=== PATIENT | male | born 1985 | race Caucasian/White ===

== ENCOUNTER 2018-02-03 23:18 | Emergency (ER) | payer OTHER, SELFPAY ==
[2018-02-03 23:19] VITALS: BP 145/89; PULSE 89; RESP 16; TEMP 36.6; O2SAT 98; BMI 31.9
--- NOTE | 2018-02-04 00:01 | RAD_ITS ---
STUDY: X-RAY - RIGHT SHOULDER REASON FOR EXAM: Male, 32 years old. Trauma right shoulder pain TECHNIQUE: 4 view(s) of the shoulder. COMPARISON: None. FINDINGS: No acute fracture or dislocation. No radiopaque foreign body. Normal visualized pulmonary apex. RAD/Shoulder min 2 Views IMPRESSION: No acute fracture or dislocation. Electronically Signed: Otto Garcia, at 0:34 EST Tel , Service support ,
--- NOTE | 2018-02-04 01:24 | ED.VISSUMM ---
- ER Visit Summary Date of Service: 02/04/18 Chief Complaint: Fall History of Present Illness: The patient is a 32 M who presents after a fall that occurred tonight at work. Patient states he fell approximately 4 feet. Patient states he landed on his right shoulder and hit the right side of his head. Patient denies any loss of consciousness. Patient describes the pain as tightness and aching. Patient states the pain is worse with movement. Patient denies any paresthesias or weakness. Patient denies any difficulty ambulating. Patient states his last tetanus was within the last 5 years. Patient does admit to some nausea but denies any vomiting. Patient denies any visual changes. Patient denies any hearing changes. Physical Examination: Vital signs are stable. Patient is afebrile. Patient is in no acute distress. Oral mucosa is pink and moist. Neck is supple. Trachea is midline. There is no JVD noted. Heart was regular rate and rhythm. Lungs are clear and equal bilateral. There is good respiratory effort noted. Musculoskeletal exam reveals tenderness over the right shoulder, worse over the posterior aspect of the shoulder. There is no bony crepitance or step-off. There is no edema or ecchymosis. There is no deformity noted. Range of motion was slightly limited in abduction, flexion, and extension secondary to pain. Sensation was intact to light touch in the radial, median, ulnar, and axillary areas. Strength is 5/5 bilaterally. Cranial nerves II through XII are intact. There are no focal motor or sensory deficits noted. There is some mild tenderness over the cervical spine and right cervical paraspinal muscles. There is no ecchymosis. Range of motion was limited in all motions of the cervical spine secondary to pain. There is also mild tenderness over the right occipital area of the scalp. There is no bony crepitance or step-off. Test Results: CT scan of the brain and cervical spine were obtained. There is no acute intracranial abnormality. There is no cervical spine fracture. X-rays of the right shoulder were obtained. There is no acute fracture or dislocation. Emergency Department Course and Treatment: Patient was instructed to ice and elevate the right shoulder. Patient was instructed to take [id number] ibuprofen or Tylenol as needed for pain. Patient was instructed to follow-up with his primary care physician or [facility] in 5-7 days. Patient understood and was agreeable with the plan. All questions were answered. Disposition: Discharged home Impression: 1. Right shoulder contusion 2. Acute cervical strain 3. Head contusion This note was generated with [employer] dictation software. It may contain incorrect words, spelling, and punctuation that were not noted in review of the chart prior to signing ED Disposition - Plan for ED Patient: Chief Complaint: Fall Diagnosis: Head contusion, Contusion of right shoulder, initial encounter, Acute cervical myofascial strain Instructions: ED Mechanical Fall, ED Contusion Upper Ext, ED Head Injury Closed Referrals: Care Physician,No Primary [Primary Care Provider] -
--- NOTE | 2018-02-04 01:28 | ED.DCSUM_ITS ---
- ER Visit Summary Date of Service: 02/04/18 Chief Complaint: Fall History of Present Illness: The patient is a 32 M who presents after a fall that occurred tonight at work. Patient states he fell approximately 4 feet. Patient states he landed on his right shoulder and hit the right side of his head. Pat ient denies any loss of consciousness. Patient describes the pain as tightness and aching. Patient states the pain is worse with movement. Patient denies any paresthesias or weakness. Patient denies any difficulty ambulating. Patient states his last tetanus was within the last 5 years. Patient does admit to some nausea but denies any vomiting. Patient denies any visual changes. Patient den ies any hearing changes. Physical Examination: Vital signs are stable. Patient is afebrile. Patient is in no acute distress. Oral mucosa is pink and moist. Neck is supple. Trachea is midline. There is no JVD noted. Heart was regular rate and rhythm. Lungs are clear and equal bilateral. There is good respiratory effort noted. Musculoskeletal exam reveals tenderness over the right shoulder, worse over the posterior aspect of the shoulder. There is no bony crepitance or step-off. There is no edema or ecchymosis. There is no deformity noted. Range of motion was slightly limited in abduction, flexion, and extension secondary to pain. Sensation was intact to light touch in the radial, median, ulnar, and axillary areas. Strength is 5/5 bilaterally. Cranial nerves II through XII are intact. There are no focal motor or sensory deficits noted. There is some mild tenderness over the cervical spine and right cervical paraspinal muscles. There is no ecchymosis. Range of motion was limited in all motions of the cervical spine secondary to pain. There is also mild tenderness over the right occipital area of the scalp. There is no bony crepitance or step-off. Test Results: CT scan of the brain and cervical spine were obtained. There is no acute intracranial abnormality. There is no cervical spine fracture. X-rays of the right shoulder were obtained. There is no acute fracture or dislocation. Emergency Department Course and Treatment: Patient was instructed to ice and elevate the right shoulder. Patient was instructed to take [id number] ibuprofen or Tylenol as needed for pain. Patient was instructed to follow-up with his primary care physician or [facility] in 5-7 days. Patient understood and was agreeable with the plan. All questions were answered. Disposition: Discharged home Impression: 1. Right shoulder contusion 2. Acute cervical strain 3. Head contusion This note was generated with [employer] dictation software. It may contain incorrect words, spelling, and punctuation that were not noted in review of the chart prior to signing ED Disposition - Plan for ED Patient: Chief Complaint: Fall Diagnosis: Head contusion, Contusion of right shoulder, initial encounter, Acute cervical myofascial strain Instructions: ED Mechanical Fall, ED Contusion Upper Ext, ED Head Injury Closed Referrals: Care Physician,No Primary [Primary Care Provider] -
[2018-02-04 01:41] VITALS: RESP 15
--- NOTE | 2018-02-04 23:42 | CT_ITS ---
STUDY: CT BRAIN WITHOUT CONTRAST REASON FOR EXAM: Male, 32 years old. Trauma RADIATION DOSAGE (If Supplied By Facility): CTDIvol = ( 44.99 ) mGy, DLP = ( 796.11 ) mGycm TECHNIQUE: Transaxial CT imaging of the brain was performed without administration of intravenous contrast material. Individualized dose optimization techniques were used for this CT. COMPARISON: None. FINDINGS: Normal soft tissue structures. Normal calvarium. Normal size ventricles and extra-axial spaces for the patient's age. Normal white matter tracts of the cerebral hemispheres. Normal basal ganglia and thalami. Normal brainstem. Normal cerebellum. There is no intracranial hemorrhage. There are no findings of an acute ischemic infarction. Normal visualized paranasal sinuses. CT/Brain/Head without Contrast IMPRESSION: Normal unenhanced CT scan of the brain. Electronically Signed: Otto Garcia, at 1:14 EST Tel , Service support ,
--- NOTE | 2018-02-04 23:43 | CT_ITS ---
STUDY: CT CERVICAL SPINE WITHOUT CONTRAST REASON FOR EXAM: Male, 32 years old. Trauma RADIATION DOSAGE (If Supplied By Facility): CTDIvol = ( 21.73 ) mGy, DLP = ( 497.84 ) mGycm TECHNIQUE: High resolution transaxial imaging was performed without contrast material. Sagittal and coronal images were reconstructed. Individualized dose optimization techniques were used for this CT. COMPARISON: None FINDINGS: Normal craniovertebral junction. Normal anterior atlantoaxial articulation. Normal odontoid process. Normal cervical lordosis. Mild degenerative changes. No acute fracture or subluxation. The small amount of gas adjacent to the posterior right aspect of the upper thoracic trachea. No significant prevertebral soft tissue swelling. CT/Spine Cervical without Contras IMPRESSION: Mild degenerative changes. No acute fracture or subluxation. There is a small amount of gas seen to the posterior right aspect of the upper thoracic trachea. This could represent a tracheal diverticulum. A definitive connection to the trachea is not clearly identified on these images. Small amount of gas within the soft tissues is thought less likely given the usual location of the tracheal diverticulum however cannot be excluded. If there is clinical concern a dedicated CT scan of the chest could be performed to further evaluate. Electronically Signed: Otto Garcia, at 1:19 EST Tel , Service support ,
== END 2018-02-04 01:46 | disposition home or self-care (01) ==
PROVIDERS: Emergency Provider Emergency Medicine
DX: S00.93XA Contusion of unspecified part of head, initial encounter (principal); S40.011A Contusion of right shoulder, initial encounter; S16.1XXA Strain of muscle, fascia and tendon at neck level, initial encounter; Z72.0 Tobacco use; W17.89XA Other fall from one level to another, initial encounter; Y93.89 Activity, other specified; Y92.89 Other specified places as the place of occurrence of the external cause; Y99.0 Civilian activity done for income or pay
CPT/HCPCS: 70450; 72125; 73030; 99282

== ENCOUNTER 2018-10-03 08:59 | Emergency (ER) | payer OTHER, SELFPAY ==
[2018-10-03 09:00] VITALS: BP 180/104; PULSE 94; RESP 16; TEMP 37.2; O2SAT 97; BMI 31.9
--- NOTE | 2018-10-03 09:07 | ED.VIS.GEN ---
History of Present Illness Chief Complaint: Allergic Reaction Informant: Patient Onset: Today - 819 Context: Sudden Onset Timing: Continuous Quality: Stung left upper eyelid Location: Left upper eyelid Current Severity: Mild Maximum Severity: Mild Worsened by: Hymenoptera envenomation Relieved by: Nothing Associated Symptoms: Nothing Narrative: Patient is a healthy 33 male who presents because of swelling left upper eyelid. This occurred after hymenoptera envenomation. This occurred at 0820. He has no systemic symptoms. He specifically denies swelling of his lips, tongue or throat. There is no change in voice. No difficulty swallowing or drooling. He denies wheezing or shortness of breath. Denies dyspnea on exertion. He denies nausea or vomiting presently. He states when this first occurred he felt nauseous. He has not noted a rash. He states he is tired because he works third shift. Prior similar symptoms: No Recent Illness/Hospitalization: No - Past Medical History (1) No significant past medical history Status: Acute Past Medical History - Allergies and Home Meds Allergies/Adverse Reactions: Allergies No Known Allergies Allergy (Verified 02/03/18 23:22) Primary Care Physician: Care Physician,No Primary [Primary Care Provider] - Prior records reviewed: No Past Medical History: None Surgical History: no surgical history Lives: Spouse/ Significant Other Smoking Status: Current every day smoker Alcohol: Rare Drugs: None Review of Systems General: Denies: Chills, Fever, Sweats Eyes: Reports: - - Swelling left upper eyelid. Denies: Visual changes - bilaterally, Blurred Vision - bilaterally, Diplopia ENT: Denies: Bilateral ear pain, Rhinorrhea, Sore throat Cardiovascular: Denies: Chest pain, Palpitations Respiratory: Denies: Dyspnea, Cough, Dyspnea on exertion Gastrointestinal: Reports: Nausea. Denies: Abdominal pain, Vomiting, Diarrhea Genitourinary: Denies: Dysuria, Hematuria, Frequency Musculoskeletal: Denies: Myalgias, Arthralgias, Neck pain, Back pain, Swelling, Extremity Pain Skin: Denies: Rash, Abrasions, Wounds Neurological: Denies: Headache, Weakness, Parasthesia, Numbness Allergy: Denies: Uticaria, Swelling of the mouth, Swelling of the tongue Physical Exam Vital Signs/Narrative: Vital Signs Temp Pulse Resp BP Pulse Ox 10/03/18 09:00 98.9 F 94 16 180/104 H 97 Inital Vital Signs reviewed: Yes - Pressure is elevated General: Well nourished, Well developed, No Acute Distress Head: Normocephalic, Atraumatic. Negative for: Trauma, Tenderness Eyes: Perrl, EOMI, - - Swelling of the left upper eyelid only. Negative for: Pale conjunctiva, Scleral icterus ENT: Moist mucous membranes, No rhinorrhea, TM's clear, - - There is no evidence of angioedema. Trachea is midline. There is no stridor. Neck: Supple, Nontender, No lymphadenopathy, No JVD Cardiovascular: Regular rate, Regular rhythm, No murmurs Respiratory: No distress, CTA bilaterally, Chest nontender Extremities: Nontender, No edema Skin: Normal color, No rash, No Trauma - There is a wound secondary to envenomation site. Negative for: Cyanosis, Diaphoresis, Jaundice Neurological: Alert, Oriented x3, Cranial nerves II-XII grossly intact, Normal Strength, Normal Sensation Psychological: Normal affect, Normal Mood Diagnostic/Tx/Re-eval - Medical Decision Making Sent with local allergic reaction to hymenoptera envenomation. Patient was instructed ice and Benadryl. The swelling may get worse over the next 24 to 48 hours. This is to be expected. ED Disposition - Plan for ED Patient: Disposition: Home or Assisted Living Diagnosis: Allergic reaction to bee sting, Elevated blood pressure reading Instructions: ALLERGIC REACTION, Insect (Local) Referrals: Care Physician,No Primary [Primary Care Provider] - Radha Dela Cruz DO [STAFF PHYSICIAN] - Additional Instructions: Since you do not have a primary care physician you were assigned to Dr. Radha Dela Cruz. Your blood pressure is elevated, 180/104. Your blood pressure should be reassessed in 1 to 2 weeks.
[2018-10-03 09:53] VITALS: BP 169/99; PULSE 89; RESP 16; O2SAT 99
== END 2018-10-03 09:54 | disposition home or self-care (01) ==
PROVIDERS: Emergency Provider Emergency Medicine; Family Provider Student in an Organized Health Care Education/Training Program; PCP Student in an Organized Health Care Education/Training Program
DX: T63.441A Toxic effect of venom of bees, accidental (unintentional), initial encounter (principal); R22.0 Localized swelling, mass and lump, head; R03.0 Elevated blood-pressure reading, without diagnosis of hypertension; F17.200 Nicotine dependence, unspecified, uncomplicated
CPT/HCPCS: 99282

== ENCOUNTER 2020-06-03 22:52 | Emergency (ER) | payer OTHER, SELFPAY ==
[2020-06-03 22:53] VITALS: BP 162/84; PULSE 95; RESP 18; TEMP 36.4; O2SAT 99; BMI 32.6
--- NOTE | 2020-06-03 23:02 | ED.VIS.GEN ---
History of Present Illness Chief Complaint: Bite Informant: Patient Onset: Yesterday Context: Gradual Onset Timing: Continuous Current Severity: Moderate Maximum Severity: Moderate Narrative: Patient is an otherwise healthy 34-year-old male who presents to the emergency department with itching and redness of his right arm. Patient states that over the weekend, he was helping a neighbor with a garden bed. He states that Wednesday morning, he noticed that there was some small welts on his right forearm. He states that they seem to have spread and he got more itchy. He states that 1 seem to rupture and there were some crusting around the edge. He denies fevers or chills. He denies any definitive trauma. He is otherwise been in his normal state of health. Prior similar symptoms: No Recent Illness/Hospitalization: No Past Medical History - Allergies and Home Meds Allergies/Adverse Reactions: Allergies No Known Allergies Allergy (Verified 06/03/20 22:55) Primary Care Physician: Isaias Villasenor DO [Primary Care Provider] - Prior records reviewed: Yes Past Medical History: None Surgical History: no surgical history Smoking Status: Current every day smoker Review of Systems General: Denies: Chills, Fever, Sweats Eyes: Denies: Visual changes - bilaterally, Diplopia ENT: Denies: Rhinorrhea, Sore throat Cardiovascular: Denies: Chest pain, Palpitations Respiratory: Denies: Dyspnea, Cough, Dyspnea on exertion Gastrointestinal: Denies: Abdominal pain, Nausea, Vomiting, Diarrhea, Melena, Hematochezia Genitourinary: Denies: Dysuria, Hematuria, Frequency Musculoskeletal: Denies: Back pain, Extremity Pain Skin: Denies: Rash, Wounds Neurological: Denies: Headache, Weakness, Numbness Physical Exam Vital Signs/Narrative: Vital Signs Temp Pulse Resp BP Pulse Ox 06/03/20 22:53 97.5 F L 95 18 162/84 H 99 Inital Vital Signs reviewed: Yes General: Well nourished, Well developed, No Acute Distress Head: Normocephalic, Atraumatic Eyes: Perrl, EOMI ENT: Moist mucous membranes, No rhinorrhea Neck: Supple, Nontender Cardiovascular: Regular rate, Regular rhythm, No murmurs Respiratory: No distress, CTA bilaterally, Chest nontender Abdomen: Soft, Nontender, Nondistended, Normal bowel sounds Back: Nontender, Normal Inspection Extremities: No edema, Tenderness - Patient has some scant linear eruption of urticaria with 2 small vesicles. It does seem to be consistent with allergic reaction contact dermatitis. There is no abscess. There is no streaking. Skin: Normal color Neurological: Alert, Oriented x3, Cranial nerves II-XII grossly intact, Normal Strength, Normal Sensation Psychological: Normal affect, Normal Mood Diagnostic/Tx/Re-eval - Medical Decision Making Clinically, I do feel this is most consistent with a contact dermatitis. The patient does have a 0.5 cm area of ulceration where he had the largest blister. The wound edges are mildly erythematous, but there is no significant cellulitis. I do feel the most prudent plan of care at this point will be to treat him with prednisone and oral antibiotics. I do not suspect a dangerous process. His compartments are soft. His pulses are normal. There is no overwhelming evidence of infection. I will have him reevaluated within 48 hours and is comfortable with this plan of care. Impression 1. Contact dermatitis ED Disposition - Plan for ED Patient: Instructions: ED Contact Dermatitis Prescriptions: Cephalexin [Keflex] 500 mg PO Q6 #40 capsule Prescription Printed Prednisone 10 mg PO UD #33 tablet Prescription Printed Referrals: Isaias Villasenor DO [Primary Care Provider] -
[2020-06-03] MEDS: Cephalexin 250 MG Capsule 500 MG PO (23:05)
[2020-06-03] MEDS: predniSONE 20 MG Tablet 60 MG PO (23:05)
== END 2020-06-03 23:27 | disposition home or self-care (01) ==
LOC: ED 23:20
PROVIDERS: Emergency Provider Emergency Medicine; PCP Student in an Organized Health Care Education/Training Program
DX: L25.9 Unspecified contact dermatitis, unspecified cause (principal); F17.200 Nicotine dependence, unspecified, uncomplicated
CPT/HCPCS: 99283

== ENCOUNTER 2021-03-21 22:17 | Emergency (ER) | payer OTHER, SELFPAY ==
[2021-03-21 22:18] VITALS: BP 161/84; PULSE 84; RESP 16; TEMP 35.7; O2SAT 99; BMI 33.4
[2021-03-21 23:12] LABS: Absolute Lymphocyte Count 4.52 X10^3/uL (0.83-4.51); Absolute Neutrophil Count 4.3 X10^3/uL (2.0-7.7); Basophil# 0.11 X10^3/uL; Basophil% 1.1 % (0-1); Eosinophil# 0.52 X10^3/uL; Eosinophils% 5.2 % (0-5); Hematocrit 40.7 % (40-54); Hemoglobin 14.5 g/dL (13.0-16.5); Lymphocyte # 4.52 X10^3/ul (0.83-4.51); Lymphocyte % 45.1 % (19-41); Mean Corp Hgb Conc 35.6 g/dL (32-36); Mean Corpuscular Hgb 31.4 pg (27.0-32.0); Mean Corpuscular Volume 88.1 fL (80-94); Mean Platelet Vol. 10.3 fl (6.2-12.0); Monocyte# 0.59 X10^3/uL; Monocyte% 5.9 % (0-10); NRBC Flagged by Analyzer 0 % (0-5); Neutrophil # 4.27 X10^3/uL (2.7-7.7); Neutrophil % 42.5 % (47-70); POSITIVE MORPHOLOGY YES; Platelet Count 225 K/mm3 (150-450); RBC Distribution Width CV 12.1 % (11.6-14.6); RBC Distribution Width SD 38.7 fl (35.1-43.9); Red Blood Count 4.62 M/mm3 (4.6-6.2)
--- NOTE | 2021-03-21 23:12 | EDS_ITS ---
HPI History of Present Illness Chief Complaint: Other, Pain/Inj Narrative Narrative: Patient is a 35-year-old male who presents to the ER with left-sided neck pain. 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 He denies any direct trauma or recent excessive activity and states he noticed some pain in the left side of his neck yesterday with no known injury. He states that the pain has worsened and also spread up into his face today. He denies any trouble breathing or swallowing any fevers or chills but with the worsening symptoms presents to the hospital for evaluation. PFSH PFSH Home Medications hydrocodone-acetaminophen 1 tab PO Q6H PRN 3 Days #12 tab 03/22/21 [Rx Last Taken Unknown] methocarbamol 1,000 mg PO 4X/DAY PRN PRN 7 Days #56 tab 03/22/21 [Rx Last Taken Unknown] [id number] 4 drp LEFT EAR 4X/DAY 7 Days #10 ml 03/22/21 [Rx Last Taken Unknown] Allergy/AdvReac Type Severity Reaction Status Date / Time No Known Allergies Allergy Verified 03/21/21 22:20 Social History Smoking Status: Current every day smoker tobacco type: cigarettes ROS ROS ED Constitutional Constitutional ED: Denies chills or fever(s) ENT ENT ED: Denies sore throat Cardiovascular Cardiovascular: Denies chest pain Respiratory/Chest Respiratory/Chest: Denies cough or dyspnea Gastrointestinal Gastrointestinal: Denies abdominal pain, diarrhea, nausea or vomiting Genitourinary Genitourinary ED: Denies dysuria Musculoskeletal Musculoskeletal: Reports neck pain; Denies myalgias Integumentary Denies Abrasions or rash Neurologic Neurologic: Denies headache(s) Hematologic/Lymphatic Hematologic/Lymphatic: Denies easy bleeding or easy bruising EXAM Physical Exam Const Vital Signs: 03/21/21 22:18 03/21/21 22:53 Temperature 96.2 F L Temperature Source Temporal Pulse Rate 84 Respiratory Rate 16 Respiratory Effort Normal Non-Labored Respiratory Pattern Normal Blood Pressure 161/84 H Blood Pressure Mean 109 Pulse Ox 99 Oxygen Delivery Method Room Air Positive well nourished and well developed General Appearance ED: well developed HEENT Reports moist mucous membranes HEENT Narrative: No tonsillar hypertrophy or edema no trismus or change in voice or difficulty with secretions no obvious abscess airway edema or compromise. Patient does have mild soft tissue swelling and erythema of the left ear canal compared to the right but there is no pain with external manipulation of the left ear and no mastoid pain bilaterally. Eyes PERRL and EOMs intact bilaterally Neck supple Neck Narrative: Patient has pain with palpation in the left mid anterior cervical lymph node chain in the neck without obvious lymphadenopathy or overlying soft tissue changes. No meningeal signs Resp normal respiratory effort and clear to auscultation bilaterally Cardio regular rate and regular rhythm GI normal to inspection, nondistended, normoactive bowel sounds, non-tender, non- distended and no masses Auscultation: normoactive bowel sounds Palpation: soft Extremity normal to inspection Neuro oriented x3 and CN's II-XII intact bilaterally Sensorium / Orientation: alert Motor Exam: strength 5/5 throughout Psych mental status grossly normal Skin no rashes or lesions noted MDM MDM MDM Narrative Medical decision making narrative: Patient presented to the ER complaining of pain in the left anterior cervical chain of his neck with no known injury. He did not have any obvious overlying soft tissue changes to suggest abscess or soft tissue infection. The posterior pharynx exam did not show any obvious abscess or signs of infection either. However with his pain coming on spontaneously I did elect to perform basic labs and a CT scan to rule this out. Labs revealed no clinically significant findings and CT scan showed no acute inflammatory or infectious pathology. Therefore at this time as overall work-up is negative and patient remains hemodynamically stable he is safe for discharge and can follow-up on an outpatient basis. Lab Data Attestation: I reviewed the patient's lab results. Labs: Laboratory Results - last 24 hr 03/21/21 03/21/21 03/21/21 23:05 23:05 23:05 WBC 10.0 RBC 4.62 Hgb 14.5 Hct 40.7 MCV 88.1 MCH 31.4 MCHC 35.6 RDW Std Deviation 38.7 RDW Coeff of [place] 12.1 Plt Count 225 MPV 10.3 Immature Gran % (Auto) 0.200 Neut % (Auto) 42.5 L Lymph % (Auto) 45.1 H [place] % (Auto) 5.9 Eos % (Auto) 5.2 H Baso % (Auto) 1.1 H Absolute Neuts (auto) 4.3 Absolute Lymphs (auto) 4.52 H Nucleated RBC % 0 Differential Comment SCANNED Atypical Lymphocytes RARE Sodium 141 Potassium 3.4 L Chloride 109 H Carbon Dioxide 25.0 Anion Gap 7 BUN 14 Creatinine 1.08 Estim Creat Clear Calc 91.48 Est GFR (MDRD) Af Amer 99 Est GFR (MDRD) Non-Af 82 BUN/Creatinine Ratio 13.0 Glucose 145 H Lactic Acid 1.4 Calcium 8.3 L Radiography Diagnostic Testing: Clinical Impression(s) from Imaging Studies Soft Tissue Neck CT 03/21/21 23:30 IMPRESSION: Normal enhanced CT examination of the soft tissues of the neck. Electronically Signed: Gerardo Arellano MD at 23:52 EST Reading Location ID and State: [address] [place] [address] , Service support , Discharge Plan Triage Chief Complaint: Other, Pain/Inj ED Provider: Lon Jc Dx/Rx/DC Orders Clinical Impression: Left otitis externa, Cervical myofascial strain Instructions: ED Neck Sprain or Strain, ED External Ear Infection (Adult) Prescriptions: New hydrocodone-acetaminophen 5-325 mg tablet 1 tab PO Q6H PRN (Reason: pain) 3 Days Qty: 12 RF: 0 methocarbamol 500 mg tablet 1,000 mg PO 4X/DAY PRN PRN (Reason: Muscle pain/spasm) 7 Days Qty: 56 RF: 0 vzbptgfb-yqoqalfaw-WP 3.5-10,000-1 mg/mL-unit/mL-% drops,suspension 4 drp LEFT EAR 4X/DAY 7 Days Qty: 10 RF: 0 Primary Care Provider: Isaias Villasenor Referrals: Isaias Villasenor DO [Primary Care Provider] - Disposition Disposition: Home, Self Care
[2021-03-21] MEDS: 0.9% Normal Saline 1,000 ML 999 ML IV (23:13)
[2021-03-21] MEDS: Ondansetron 4 MG/2 ML Vial IV (23:13)
[2021-03-21] MEDS: Morphine 4 MG/ML Syringe IV (23:13)
[2021-03-21 23:20] LABS: Differential Indicated SCAN CRITERIA MET
--- NOTE | 2021-03-21 23:30 | CT_ITS ---
STUDY: CT SOFT TISSUE NECK WITH CONTRAST REASON FOR EXAM: Male, 35 years old. ? Necrotic lymph node RADIATION DOSAGE (If Supplied By Facility): CTDIvol = ( 17.44 ) mGy, DLP = ( 479.38 ) mGycm TECHNIQUE: The patient was scanned in a multi-detector CT scanner. High resolution transaxial imaging was performed following intravenous administration of IV 75mL Isovue-[id number]. Sagittal and coronal images were reconstructed. Individualized dose optimization techniques were used for this CT. COMPARISON: CT cervical spine 02/04/2018 FINDINGS: Normal bilateral parotid glands. Normal bilateral marketing systems analyst spaces. Normal bilateral parapharyngeal spaces. Normal bilateral carotid spaces. Normal bilateral sublingual and submandibular glands and spaces. Normal visualized nasopharynx. Normal retropharyngeal space. Normal perivertebral space. Normal visualized bilateral faucial tonsils. The visualized tongue, tongue base and oropharynx are normal. The visualized cervical lymph nodes (levels I-) are within normal size limits, and maintain normal morphology. There is no demonstrated solid or cystic mass lesion. There is no abnormal contrast enhancement. Normal epiglottis, bilateral vallecula and hypopharynx. The pre-epiglottic and paraglottic adipose spaces are normal. Normal visualized bilateral piriform sinuses, aryepiglottic folds, vocal cords, and arytenoid-cricoid articulations. Normal subglottic trachea. Normal bilateral lobes of the thyroid gland. Normal visualized pulmonary apices. Normal visualized paranasal sinuses. Normal visualized cervical spine. CT/Soft Tissue Neck WITH Contrast IMPRESSION: Normal enhanced CT examination of the soft tissues of the neck. Electronically Signed: Gerardo Arellano MD at 23:52 EST ,
[2021-03-21 23:37] LABS: Anion Gap 7 (5-15); BUN 14 mg/dL (7-18); Calcium,Total 8.3 mg/dL (8.5-10.1); Chloride 109 mmol/L (98-107); Creatinine, Serum 1.08 mg/dL (0.70-1.30); EST Glomerular Filtration Rate 82 mL/min (>60); Est Glom Filt Rate - Afr Amer 99 mL/min (>60); Estimated Creatinine Clearance 91.48 ml/min; Glucose 145 mg/dL (74-106); Potassium 3.4 mmol/L (3.5-5.1); Sodium Level 141 mmol/L (136-145)
[2021-03-21 23:40] LABS: Lactic Acid 1.4 mmol/L (0.4-1.9)
[2021-03-22 00:07] LABS: Atypical Lymphocyte RARE %; Differential Comment SCANNED
[2021-03-22 00:25] VITALS: BP 108/69; PULSE 72; RESP 16; O2SAT 98
== END 2021-03-22 00:26 | disposition home or self-care (01) ==
PROVIDERS: Emergency Provider Emergency Medicine; PCP Student in an Organized Health Care Education/Training Program; Visit Provider Emergency Medicine
DX: H60.92 Unspecified otitis externa, left ear (principal); S16.1XXA Strain of muscle, fascia and tendon at neck level, initial encounter; F17.210 Nicotine dependence, cigarettes, uncomplicated; Y33.XXXA Other specified events, undetermined intent, initial encounter
CPT/HCPCS: 70491; 80048; 83605; 85025; 96374; 96375; 99283; J7030; Q9967; J2405